=== PATIENT | female | born 1970 | race Caucasian/White ===

== ENCOUNTER 2021-01-02 08:02 | Emergency (ER) | payer MEDICAID ==
--- NOTE | 2021-01-02 08:21 | ED Physician Documentation ---
PD HPI BACK PAIN - Stated complaint Stated Complaint: BACK/NERVE PAIN - Chief complaint Chief Complaint: Back Pain - History obtained from History obtained from: Patient - History of Present Illness Timing - onset: Today, Last night Timing - duration: Days (1) Timing - details: Gradual onset, Still present Location: Lower, Left (lower left back hurting, but main pain is posterior pelvic area and down left posterolateral thigh to the knee.) Quality: Pain, Spasm Associated symptoms: No: Fever, Weakness, Numbness Improves with: No: Rest Worsened by: Movement, Twisting Contributing factors: No: Lifting, Twisting, Trauma Similar symptoms before: Diagnosis (History of herniated L4 disc with recurrent episodes of pain and radiculitis only occurring every several years. Interval time is usually okay. No prior shingles. She says last imaging/MRI was just few years ago.) Recently seen: Not recently seen Review of Systems Constitutional: denies: Fever, Chills Nose: denies: Rhinorrhea / runny nose, Congestion Throat: denies: Sore throat Respiratory: denies: Cough GI: denies: Abdominal Pain, Nausea, Vomiting, Constipation, Diarrhea : denies: Dysuria, Incontinent, Hematuria Skin: denies: Rash, Lesions Musculoskeletal: reports: Back pain (left lower back/pelvis down left leg. No numbness.) Neurologic: denies: Focal weakness, Numbness PD PAST MEDICAL HISTORY - Past Medical History Cardiovascular: Hypertension Respiratory: None Neuro: None Endocrine/Autoimmune: None - Present Medications Home Medications: Ambulatory Orders Medication Instructions Recorded Confirmed Aspirin Chewable [[place] 81 mg PO DAILY 01/02/21 01/02/21 Aspirin] Atorvastatin Calcium 40 mg PO DAILY 01/02/21 01/02/21 Hydrochlorothiazide 25 mg PO DAILY 01/02/21 01/02/21 Levothyroxine Sodium 125 mcg PO DAILY 01/02/21 01/02/21 [Levothyroxine] Liothyronine [Cytomel] 5 mcg PO QDAC 01/02/21 01/02/21 Lisinopril [Zestril] 40 mg PO DAILY 01/02/21 01/02/21 Ondansetron Odt [Zofran Odt] 4 mg TL Q6H PRN 01/02/21 01/02/21 Oxycodone HCl/Acetaminophen 1 each PO Q6H PRN #20 tablet 01/02/21 [Percocet 5-325 mg Tablet] amLODIPine [Norvasc] 10 mg PO DAILY 01/02/21 01/02/21 dexAMETHasone [Decadron] 4 mg PO DAILY #5 tablet 01/02/21 diazePAM [Valium] 5 mg PO TID PRN #20 tablet 01/02/21 - Allergies Allergies/Adverse Reactions: Allergies Allergy/AdvReac Type Severity Reaction Status Date / Time pseudoephedrine AdvReac Emesis Verified 01/02/21 08:11 [From Sudafed] PD ED PE NORMAL - Vitals Vital signs reviewed: Yes - General General: Alert and oriented X 3, Well developed/nourished, Other (She appears quite uncomfortable with trying to find a comfortable position somewhat though guarding range of motion of the low back. She feels best slightly flexed leaning forward. Worse turning to the side.) - Abdomen Abdomen: Soft, Non tender - Back Back: No CVA TTP, No spinal TTP, Other (tender left upper SI area and muscles. No rash, redness, nor skin sensitivity. ) - Derm Derm: Normal color, Warm and dry, No rash - Extremities Extremities: No edema, No calf tenderness / cord - Neuro Neuro: Alert and oriented X 3, No motor deficit, No sensory deficit, Normal speech, Other (normal knee reflexes) Results - Vitals Vitals: Vital Signs - 24 hr 01/02/21 01/02/21 08:08 09:51 Temperature 36.0 C L Heart Rate 67 56 L Respiratory 16 16 Rate Blood Pressure 118/76 90/65 O2 Saturation 98 100 Oxygen O2 Source Room air PD MEDICAL DECISION MAKING - ED course Complexity details: re-evaluated patient (improving symptoms. Some nausea from pain meds. No red flags to suggest need for further testing/imaging. ), considered differential (The patient does appear uncomfortable. She has symptoms consistent with radiculitis. No signs of caudal compression. She is given IM medication here in the ER at to improve symptoms for now. We will treat with anti-inflammatories, muscle relaxants, pain meds, and physical treatment such as heat.), d/w patient Departure - Departure Disposition: 01 Home, Self Care Clinical Impression: Acute low back pain Qualifiers: Back pain laterality: left Sciatica presence: with sciatica Sciatica laterality: sciatica of left side Qualified Code(s): M54.42 - Lumbago with sciatica, left side Condition: Stable Record reviewed to determine appropriate education?: Yes Instructions: ED Sciatica Prescriptions: dexAMETHasone [Decadron] 4 mg PO DAILY #5 tablet Oxycodone HCl/Acetaminophen [Percocet 5-325 mg Tablet] 1 each PO Q6H PRN #20 tablet PRN Reason: pain diazePAM [Valium] 5 mg PO TID PRN #20 tablet PRN Reason: Spasms Comments: Heat and gentle stretching for the low back. Try to maintain mobility to reduce spasming. Decadron steroid anti-inflammatory daily for the next 5 days. You could add a little bit of ibuprofen or naproxen twice daily with food so as to not irritate your stomach. Diazepam muscle relaxant 2-3 times a day for spasms and stiffness. Tylenol 650 mg 4 times a day for pain or Percocet if needed for worse pain. Recheck if not improved well over the next several days to a week. Discharge Date/Time: 01/02/21 09:53
[2021-01-02] MEDS ORDERED: KETOROLAC 30 MG/ML VIAL IM STA (08:37)
[2021-01-02] MEDS ORDERED: HYDROmorphone 2 MG/ML VIAL IM STA (08:38)
[2021-01-02] MEDS ORDERED: diazePAM 5 MG TABLET PO STA (08:38)
[2021-01-02] MEDS ORDERED: DEXAMETHASONE 10 MG/ML VIAL PO STA (08:38)
[2021-01-02] MEDS ORDERED: CHERRY SYRUP 10 ML UDC PO ONE (08:38)
[2021-01-02] MEDS ORDERED: ONDANSETRON ODT 4 MG TABLET TL STA (08:56)
[2021-01-02 09:53] VITALS: BP 90/65
== END 2021-01-02 09:53 | disposition home or self-care (01) ==
LOC: ED 08:02
DX: M54.42 Lumbago with sciatica, left side (principal)
CPT/HCPCS: 96372; 99283; 99284; A9270; J1170; Q0162